=== PATIENT | female | born 1995 | race Two or more races ===

== ENCOUNTER 2020-09-03 23:00 | Emergency (ER) | payer OTHER ==
[~2020-09-03] VITALS: Ht 175.3 cm; Wt 69.4 kg
[2020-09-04] LABS: HCG, SERUM QUALITATIVE NEGATIVE (NEGATIVE)
[2020-09-04 00:07] LABS: HEMATOCRIT 45.7 % (36.0-47.0); HEMOGLOBIN 15.5 g/dl (12.0-15.5); MEAN CORPUSCULAR HEMOGLOBIN 30.1 pg (27.0-33.0); MEAN CORPUSCULAR HGB CONC 33.9 g/dl (32.0-36.5); MEAN CORPUSCULAR VOLUME 88.7 fl (80.0-96.0); PLATELET COUNT, AUTOMATED 297 10^3/uL (150-450); RED BLOOD COUNT 5.15 10^6/uL (4.00-5.40)
[2020-09-04 00:13] LABS: ACETAMINOPHEN LEVEL < 2.0 UG/ML (10.0-30.0); ALBUMIN 4.7 GM/DL (3.2-5.2); ALT/SGPT 47 U/L (12-78); AMPHETAMINES LEVEL URINE NEGATIVE (NEGATIVE); BARBITURATES URINE NEGATIVE (NEGATIVE); BENZODIAZEPINES URINE NEGATIVE (NEGATIVE); BILIRUBIN,DIRECT 0.1 MG/DL (0.0-0.2); BILIRUBIN,TOTAL 0.4 MG/DL (0.2-1.0); BLOOD UREA NITROGEN 8 MG/DL (7-18); CALCIUM LEVEL 8.7 MG/DL (8.5-10.1); CANNABINOIDS URINE NEGATIVE (NEGATIVE); CARBON DIOXIDE LEVEL 25 MEQ/L (21-32); CHLORIDE LEVEL 113 MEQ/L (98-107); COCAINE METABOLITE URINE NEGATIVE (NEGATIVE); CREATININE FOR GFR 0.82 MG/DL (0.55-1.30); ETHYL ALCOHOL (ETHANOL) 0.234 % (0.000-0.010); GLOMERULAR FILTRATION RATE > 60.0 (>60); GLUCOSE, FASTING 105 MG/DL (70-100); METHADONE URINE NEGATIVE (NEGATIVE); OPIATES URINE NEGATIVE (NEGATIVE); PHENCYCLIDINE URINE NEGATIVE (NEGATIVE); POTASSIUM SERUM 3.7 MEQ/L (3.5-5.1); SALICYLATE LEVEL < 1.7 MG/DL (5.0-30.0); SODIUM LEVEL 145 MEQ/L (136-145); THYROID STIMULATING HORMONE 0.502 uIU/ML (0.358-3.740); TOTAL PROTEIN 7.8 GM/DL (6.4-8.2)
[2020-09-04 05:17] VITALS: BP 109/74
[2020-09-04] MEDS ORDERED: VITMTA PO (05:27)
== END 2020-09-04 08:24 | disposition home or self-care (01) ==
LOC: M ED 23:00
DX: F43.20 Adjustment disorder, unspecified (principal); F10.229 Alcohol dependence with intoxication, unspecified; Y90.1 Blood alcohol level of 20-39 mg/100 ml
CPT/HCPCS: 36415; 80048; 80076; 80307; 84443; 84703; 85027; 99284; G0480

== ENCOUNTER 2021-04-19 03:45 | Emergency (ER) | payer OTHER ==
[~2021-04-19 03:45] MED LIST: VITMTA PO
[2021-04-19 03:58] LABS: HEMOGLOBIN 15.2 g/dl (12.0-15.5); MEAN CORPUSCULAR HEMOGLOBIN 31.3 pg (27.0-33.0); MEAN CORPUSCULAR HGB CONC 35.3 g/dl (32.0-36.5); MEAN CORPUSCULAR VOLUME 88.5 fl (80.0-96.0); PLATELET COUNT, AUTOMATED 282 10^3/uL (150-450); RED BLOOD COUNT 4.86 10^6/uL (4.00-5.40); WHITE BLOOD COUNT 9.3 10^3/uL (4.0-10.0)
[2021-04-19 04:39] LABS: ACETAMINOPHEN LEVEL < 2.0 UG/ML (10.0-30.0); ALBUMIN 4.2 GM/DL (3.2-5.2); ALT/SGPT 37 U/L (12-78); BILIRUBIN,DIRECT 0.1 MG/DL (0.0-0.2); BILIRUBIN,TOTAL 0.2 MG/DL (0.2-1.0); BLOOD UREA NITROGEN 11 MG/DL (7-18); CALCIUM LEVEL 9.1 MG/DL (8.5-10.1); CARBON DIOXIDE LEVEL 23 MEQ/L (21-32); CHLORIDE LEVEL 112 MEQ/L (98-107); CREATININE FOR GFR 0.65 MG/DL (0.55-1.30); ETHYL ALCOHOL (ETHANOL) 0.192 % (0.000-0.010); GLOMERULAR FILTRATION RATE > 60.0 (>60); GLUCOSE, FASTING 108 MG/DL (70-100); POTASSIUM SERUM 3.5 MEQ/L (3.5-5.1); SALICYLATE LEVEL < 1.7 MG/DL (5.0-30.0); SODIUM LEVEL 146 MEQ/L (136-145); THYROID STIMULATING HORMONE 0.936 uIU/ML (0.358-3.740); TOTAL PROTEIN 7.7 GM/DL (6.4-8.2)
[2021-04-19 11:38] VITALS: BP 120/73
== END 2021-04-19 11:40 | disposition home or self-care (01) ==
LOC: M ED 03:45
DX: F10.229 Alcohol dependence with intoxication, unspecified (principal); Y90.0 Blood alcohol level of less than 20 mg/100 ml; F43.20 Adjustment disorder, unspecified

== ENCOUNTER 2021-05-12 13:55 | Inpatient (IN) | payer OTHER ==
[~2021-05-12] VITALS: Ht 157.5 cm; Wt 75.0 kg
[2021-05-12] MEDS ORDERED: ONDANSETRON 4MG/2ML VIAL IV ONE (14:25)
[2021-05-12 15:08] LABS: HEMATOCRIT 45.9 % (36.0-47.0); HEMOGLOBIN 15.8 g/dl (12.0-15.5); MEAN CORPUSCULAR HGB CONC 34.4 g/dl (32.0-36.5); PLATELET COUNT, AUTOMATED 321 10^3/uL (150-450)
[2021-05-12 15:35] LABS: AMPHETAMINES LEVEL URINE NEGATIVE (NEGATIVE); BARBITURATES URINE NEGATIVE (NEGATIVE); BENZODIAZEPINES URINE NEGATIVE (NEGATIVE); CANNABINOIDS URINE NEGATIVE (NEGATIVE); COCAINE METABOLITE URINE NEGATIVE (NEGATIVE); METHADONE URINE NEGATIVE (NEGATIVE); OPIATES URINE NEGATIVE (NEGATIVE); PHENCYCLIDINE URINE NEGATIVE (NEGATIVE)
[2021-05-12 15:42] LABS: HCG, SERUM QUALITATIVE NEGATIVE (NEGATIVE)
[2021-05-12 15:49] LABS: ACETAMINOPHEN LEVEL 64.2 UG/ML (10.0-30.0); ALBUMIN 4.9 GM/DL (3.2-5.2); ALT/SGPT 42 U/L (12-78); BILIRUBIN,DIRECT < 0.1 MG/DL (0.0-0.2); BILIRUBIN,TOTAL 0.3 MG/DL (0.2-1.0); BLOOD UREA NITROGEN 14 MG/DL (7-18); CALCIUM LEVEL 9.1 MG/DL (8.5-10.1); CARBON DIOXIDE LEVEL 16 MEQ/L (21-32); CHLORIDE LEVEL 109 MEQ/L (98-107); CREATININE FOR GFR 0.78 MG/DL (0.55-1.30); ETHYL ALCOHOL (ETHANOL) 0.096 % (0.000-0.010); GLOMERULAR FILTRATION RATE > 60.0 (>60); GLUCOSE, FASTING 110 MG/DL (70-100); POTASSIUM SERUM 3.3 MEQ/L (3.5-5.1); SALICYLATE LEVEL < 1.7 MG/DL (5.0-30.0); SODIUM LEVEL 139 MEQ/L (136-145); THYROID STIMULATING HORMONE 0.452 uIU/ML (0.358-3.740); TOTAL PROTEIN 7.6 GM/DL (6.4-8.2)
[2021-05-12] MEDS ORDERED: CHARCOAL ACTIVATED LIQUID 25 GM/120 ML BTL PO ONE (16:05)
--- NOTE | 2021-05-12 17:28 | ECGEPIP ---
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
[2021-05-12] MEDS ORDERED: ZOLO100T PO (21:17)
[2021-05-12] MEDS ORDERED: DISU250T PO (21:17)
[2021-05-12] MEDS ORDERED: MULTCHW12 PO (21:17)
[2021-05-12] MEDS ORDERED: NEXP1IMP SC (21:17)
[2021-05-12] MEDS ORDERED: HOME MED LIST COMPLETE! XX SCH (21:20)
[2021-05-12 21:23] LABS: RSV AMPLIFICATION NEGATIVE (NEGATIVE)
[2021-05-12] MEDS ORDERED: traZODone 50 MG TAB PO PRN (21:35)
[2021-05-12] MEDS ORDERED: IBUPROFEN 400MG TAB PO PRN (21:35)
[2021-05-12] MEDS ORDERED: MOM 30ML SUSPENSION UDC PO PRN (21:35)
[2021-05-12] MEDS ORDERED: MAALOX 30 ML SUSP *UDC PO PRN (21:35)
[2021-05-12] MEDS ORDERED: OLANZapine ORAL DISINTEGRATING TAB 5MG PO PRN (21:35)
[2021-05-12 23:04] VITALS: BP 127/71
[2021-05-13 06:51] VITALS: BP 130/69
[2021-05-13 09:00] VITALS: BP 109/61
[2021-05-13] MEDS ORDERED: LORazepam 2 MG TAB PO PRN (11:10)
[2021-05-13] MEDS: MULTIVITAMINS/MINERALS THERAP 1 TAB PO SCH (11:42)
[2021-05-13] MEDS: FOLIC ACID 1 MG TAB PO SCH (11:42)
[2021-05-13] MEDS: THIAMINE 100 MG TAB PO SCH ×2 (11:43→20:48)
[2021-05-13 11:55] VITALS: BP 132/72
--- NOTE | 2021-05-13 13:43 | HPEPDOC ---
General Date of Admission May 12, 2021 at 21:34 Date of Service: May 13, 2021 Chief Complaint The patient is a 26-year-old female admitted with a reason for visit of Unspecified Depressive Disorder. History of Present Illness 26 yo active W with a history of alcohol abuse who was brought into the ED for suicide attempt by taking various medications i/s/o severe depression and feeling overwhelmed. Her committed suicide in 08/2020 by hanging and she reports difficulty coping with his suicide, has relapsed and started drinking again and reported feeling overwhelmed with life in general admitted to having taken an overdose of mixed medications with intent of killing herself. She reports 1 prior attempt when she was much younger in school. She otherwise denied any recent illness, homicidal ideations, visual or auditory hallucinations. She reports poor relations with her in-laws that did not allow her to be present at her burial service and this has made the loss worse. Lab evaluation were unremarkable and she was admitted to [facility]. Home Medications Scheduled Disulfiram (Disulfiram) 250 Mg Tablet, 250 MG PO DAILY, (Reported) Etonogestrel (Nexplanon) 68 Mg Implant, 68 MG SC ASDIRECTED, (Reported) IMPLANTED MARCH 2021 Folic Acid/Multivit-Min/Lutein (Multi-Vitamin Gummies) 1 Each Tab.chew, 2 CHW PO DAILY, (Reported) Sertraline Hcl (Zoloft) 100 Mg Tablet, 200 MG PO DAILY, (Reported) Allergies Coded Allergies: No Known Allergies (Unverified , 09/03/20) Past Medical History Medical History depression Surgical History None Social History * Smoker: Denies Alcohol: heavy Drugs: denies Psychosocial History: Decreased mood, Depression, Prior suicide attempt, Suicidal thoughts A-FIB/CHADSVASC A-FIB History Current/History of A-Fib/PAF?: No Current PO Anticoag Therapy: No Age/Risk Factor Scoring CHADSVASC: CHADSVASC Response (Comments) Value Age Risk Factor Age < 65 years old 0 Gender Risk Factor Female 1 Hx of CHF No 0 Hx of HTN No 0 Hx of Stroke/TIA/or VTE No 0 Hx of Diabetes No 0 Hx of Vascular Disease No 0 Total 1 Treatment Treatment ordered: NONE Reason Anticoagulant not given: Not indicated/[id number] Review of Systems Constitutional: Denies: Chills, Fever, Night Sweats Eyes: Denies: Pain, Vision change ENT: Denies: Head Aches, Ear Pain, Dysphagia Skin: Denies: Rash, Lesions, Breakdown Pulmonary: Denies: Dyspnea, Cough Cardiovascular: Denies: Chest Pain, Palpitations, Orthopnea, Paroxysmal Noc. Dyspnea, Lt Headedness Gastrointestinal: Denies: Nausea, Vomiting, Abdominal Pain, Diarrhea Genitourinary: Denies: Dysuria, Frequency, Incontinence, Retention Hematologic: Denies: Bruising, Bleeding Excessively Endocrine: Denies: Polydipsia, Polyphagia, Polyuria, Heat Intolerance, Cold Intolerance, Other Endocrine Sx Musculoskeletal: Denies: Neck Pain, Back Pain, Joint Pain, Muscle Pain, Spasms Neurological: Denies: Weakness, Numbness, Change in speech, Confusion Psych: Reports: Depression, Thoughts of Self Harm Physical Examination General Exam: Positive: Alert, No Acute Distress Eye Exam: Positive: PERRLA, Conjunctiva & lids normal, EOMI; Negative: Sclera icteric ENT Exam: Positive: Atraumatic, Mucous membr. moist/pink, Pharynx Normal Neck Exam: Positive: Supple; Negative: JVD, thyromegaly Chest Exam: Positive: Clear to auscultation, Normal air movement Heart Exam: Positive: Rate Normal, Regular Rhythm, Normal S1, Normal S2; Negative: Murmurs, Rubs Abdomen Exam: Positive: Normal bowel sounds, Soft; Negative: Tenderness, Hepatospenomegaly Extremity Exam: Positive: Normal pulses; Negative: Clubbing, Cyanosis, Edema Skin Exam: Positive: Nl turgor and temperature; Negative: Breakdown, Lesion Neuro Exam: Positive: Normal Gait, Normal Speech, Cranial Nerves 3-12 NL, Reflexes 2+ Psych Exam: Positive: Oriented x 3, Other (depressed when asked about recent psychosocial stressors, becomes teary) Vital Signs Vital Signs Date Time Temp Pulse Resp B/P (MAP) Pulse Ox O2 Delivery O2 Flow Rate FiO2 05/13/21 11:55 70 132/72 05/13/21 06:51 98.3 16 97 Room Air Laboratory Data Labs 24H Laboratory Tests 2 05/12/21 14:37: Nucleated Red Blood Cells % (auto) 0.0, Anion Gap 14, Glomerular Filtration Rate > 60.0, Calcium Level 9.1, Total Bilirubin 0.3, Direct Bilirubin < 0.1, Aspartate Amino Transf (AST/SGOT) 25, Alanine Aminotransferase (ALT/SGPT) 42, Alkaline Phosphatase 86, Total Protein 7.6, Albumin 4.9, Albumin/Globulin Ratio 1.8, Thyroid Stimulating Hormone (TSH) 0.452, Human Chorionic Gonadotropin, Qual NEGATIVE, Salicylates Level < 1.7L, Urine Opiates Screen NEGATIVE, Urine Methadone Screen NEGATIVE, Acetaminophen Level 64.2H, Urine Barbiturates Screen NEGATIVE, Urine Phencyclidine Screen NEGATIVE, Urine Amphetamines Screen NEGATIVE, Urine Benzodiazepines Screen NEGATIVE, Urine Cocaine Metabolite Screen NEGATIVE, Urine Cannabinoids Screen NEGATIVE, Ethyl Alcohol Level 0.096H 05/12/21 18:42: Acetaminophen Level 21.7 05/12/21 20:32: Coronavirus (COVID-19)(PCR) NEGATIVE, Influenza Type A (RT-PCR) NEGATIVE, Influenza Type B (RT-PCR) NEGATIVE, Respiratory Syncytial Virus (PCR) NEGATIVE CBC/BMP Laboratory Tests 05/12/21 14:37 Assessment/Plan 26 yo active W with a history of alcohol abuse whose recently committed suicide in 08/2020 who was admitted to the [facility] ongoing depression and suicide attempt i/s/o profound grief, depression and familial strife with in- laws. Depression and suicide attempt with persisting ideations: -Eval and treatment per psych team Alcohol abuse at risk for withdrawal: -CIWA protocol per psych At this time, she has no other active medical problems and I will sign off. Please reconsult for any medical concerns. Plan / VTE VTE Prophylaxis Ordered?: No VTE Exclusion Mechanical Proph: Low Risk for VTE VTE Exclusion Pharmacological: At Low Risk for VTE JAN FRIEND MD May 13, 2021 13:43
[2021-05-13] MEDS: NALTREXONE 50 MG TAB PO SCH (16:03)
[2021-05-13 16:28] VITALS: BP 128/65
[2021-05-13] MEDS: NICOTINE 21MG/24HR 1 EA TRANSDERMAL TD PRN (17:20)
[2021-05-13 21:00] VITALS: BP 109/61
[2021-05-14 07:00] VITALS: BP 111/59
[2021-05-14] MEDS: THIAMINE 100 MG TAB PO SCH ×2 (09:36→21:32)
[2021-05-14] MEDS: NALTREXONE 50 MG TAB PO SCH (09:36)
[2021-05-14] MEDS: FOLIC ACID 1 MG TAB PO SCH (09:36)
[2021-05-14] MEDS: SERTRALINE 100 MG TAB PO SCH (09:36)
[2021-05-14] MEDS: MULTIVITAMINS/MINERALS THERAP 1 TAB PO SCH (09:36)
--- NOTE | 2021-05-14 10:40 | MHHPEPDOC ---
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 On this occasion admitted to the ED after an overdose on Tylenol while intoxicated with alcohol (BAL.096), after which a friend called mother Anna after talking to her on "facetime", her mother then who called 911. States it occurred during lunch break when she felt overwhelmed because she was supposed to move to a new house and had to have the dogs brought over, states she drank 3 large vodka drinks, w/ ingestion of 5-10 Tylenol, also 5-10 pain relievers (does not know the name), 5 of her sertraline 100 mg pills. States she states she also forgot her Antabuse yesterday prior to this incident. Per collateral from Anna Barbie: States she thinks it was the stress of the house, people lying to her as she has not closed on her house, apparently the realtor snapped at her when she suggested renting the house until closing from the collar setter overlock. Also her 's birthday is the I wanna say, she has some memories come up around this time. He hung himself in his barracks room and the other soldiers kept her out of the loop. The mother prevented her from attending the , this has been hard on her and she has guilt because she feels she treated him badly. No suicidal thoughts made to me or change in behavior apart from her calling me after having a drink and crying about the house, she's impulsive though and cannot drink. I called 911 after her friend called me. Went this morning and removed alcohol, states roomate removed excess pills. I noticed the mood swings though. No guns or weapons at home, no symptoms of [place], depression, or psychosis. Psychiatric Review of Systems Anxiety: panic attacks (last 3 weeks ago infreqen) Anxiety/ 6 months or more of: easily fatigued, difficulty concentrating, irritability, muscle tension, personality cluster A,BC (Mood fluctuations, quick to anger, interpersonal conflict history, some feelings of emptiness, impulsive piercings/coloring hair, alcohol drinking to blackout on weekends) Past Psychiatric History Previous Psychiatric Diagnosis: Report depression and Borderline Personality disorder Previous Psychiatric Admissions: . Suicide Attempts: . Psychiatric Follow-up: . Psychiatric medications: . 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19, concussion) Seizures: No Hospitalizations: Yes (was in hospital for alcohol use withdrawal 2x) Surgeries: Yes (tonsillectomy, breast implants) Family Medical/Psychiatric HX Medical Problems Denies Psychiatric Disorders: Yes (cousin, addicted to pills, possible bipolar disorder, reports 20 y/o sister was admitted to inpatient unit after bf suicide) Addiction: No Suicide Attemps/Completions: No Addiction History nicotine (disposable vapes daily), alcohol (Drinks to blackout on weekends) Social History Childhood: Reports had trouble focusing, 2 sisters, 1 brother (estranged), she is middle child, moved around alot with father. Abuse/Trauma: Denies abuse, trauma of finding out bf hung himself Current Living Situation: Apartment in [place], [place]. Bought a house in [place] and was supposed to move in with roomate. 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 Social Support: Lots of support, mother Anna Valentin [phone], friends, roomate Legal: Denies, no DWIs reported Marital: Mental Status Examination General Appearance: unkempt Build: average Demeanor: guarded Eye Contact: avoidant Activity: slowed Behavior: cooperative, status post overdose Speech: clear, spontaneous, slow Mood: anxious Affect: constricted, anxious Thought Process: logical/linear Thought Content (Delusions): denies SI, HI, AVH Thought Content (Other): guarded, coherent Thought Content (Aggressive): none reported Perception (Hallucinations): none reported Perception (Other): none reported Cognition (Impairment of): none reported Cognition(Intelligence Est.): average Oriented: Awake, Alert, Oriented times three Insight: fair Judgment: Poor Psychosis: Denies Diagnoses Borderline Personality disorder per hx and interview Unspecified anxiety disorder A-FIB/CHADSVASC A-FIB History Current/History of A-Fib/PAF?: No Current PO Anticoag Therapy: No Age/Risk Factor Scoring CHADSVASC: CHADSVASC Response (Comments) Value Age Risk Factor Age < 65 years old 0 Gender Risk Factor Female 1 Hx of CHF No 0 Hx of HTN No 0 Hx of Stroke/TIA/or VTE No 0 Hx of Diabetes No 0 Hx of Vascular Disease No 0 Total 1 Treatment Treatment ordered: NONE Reason Anticoagulant not given: Not indicated/[id number] Assessment Patient is a 26-year-old woman, who is an active duty soldier with a history of b borderline personality disorder and depression reportedly, who presented after an intentional overdose on Tylenol and psychiatric medications. She was medically cleared and admitted to the unit 9.39. On interview appears withdrawn, mildly depressed and irritable at times, partially cooperative to questioning. Denies suicidal thoughts, becomes frustrated during she will have to stay longer to get her back on her medication and create a safe discharge plan. Initial Treatment Plan 1. Patient was admitted on a [9.39] status. 2. Complete history was obtained. 3. With patients permission, family will be contacted and database will be expanded. 4. Patients medication regimen will be reviewed and changed accordingly. 5. Patient will be provided with protected environment. 6. Patient will be treated with individual, group, and milieu therapies. 7. Patient will receive supportive psych-education. 8. Discharge planning will commence immediately. 9. Outpatient follow-up treatment will be strongly recommended. 10. The initial treatment plan will focus initially on: * Depression. * Risk for suicide. ESTIMATED LENGTH OF STAY: 7 DAYS. TIME SPENT COUNSELING AND COORDINATING INITIAL CARE: 60 minutes. Tobacco Cessation Screen Tobacco Cessation Tx Ordered?: Yes Complete/Results docum. (vaping) Vital Signs Vital Signs Date Time Temp Pulse Resp B/P (MAP) Pulse Ox O2 Delivery O2 Flow Rate FiO2 05/13/21 06:51 98.3 63 16 130/69 (89) 97 Room Air Laboratory Data 24H Labs Laboratory Tests 2 05/12/21 14:37: Nucleated Red Blood Cells % (auto) 0.0, Anion Gap 14, Glomerular Filtration Rate > 60.0, Calcium Level 9.1, Total Bilirubin 0.3, Direct Bilirubin < 0.1, Aspartate Amino Transf (AST/SGOT) 25, Alanine Aminotransferase (ALT/SGPT) 42, Alkaline Phosphatase 86, Total Protein 7.6, Albumin 4.9, Albumin/Globulin Ratio 1.8, Thyroid Stimulating Hormone (TSH) 0.452, Human Chorionic Gonadotropin, Qual NEGATIVE, Salicylates Level < 1.7L, Urine Opiates Screen NEGATIVE, Urine Methadone Screen NEGATIVE, Acetaminophen Level 64.2H, Urine Barbiturates Screen NEGATIVE, Urine Phencyclidine Screen NEGATIVE, Urine Amphetamines Screen NEGATIVE, Urine Benzodiazepines Screen NEGATIVE, Urine Cocaine Metabolite Screen NEGATIVE, Urine Cannabinoids Screen NEGATIVE, Ethyl Alcohol Level 0.096H 05/12/21 18:42: Acetaminophen Level 21.7 05/12/21 20:32: Coronavirus (COVID-19)(PCR) NEGATIVE, Influenza Type A (RT-PCR) NEGATIVE, Influenza Type B (RT-PCR) NEGATIVE, Respiratory Syncytial Virus (PCR) NEGATIVE CBC/BMP Laboratory Tests 05/12/21 14:37 Medications Scheduled Disulfiram (Disulfiram) 250 Mg Tablet, 250 MG PO DAILY, (Reported) Etonogestrel (Nexplanon) 68 Mg Implant, 68 MG SC ASDIRECTED, (Reported) IMPLANTED MARCH 2021 Folic Acid/Multivit-Min/Lutein (Multi-Vitamin Gummies) 1 Each Tab.chew, 2 CHW PO DAILY, (Reported) Sertraline Hcl (Zoloft) 100 Mg Tablet, 200 MG PO DAILY, (Reported) Allergies Coded Allergies: No Known Allergies (Unverified , 09/03/20) ARSH BROOKE MD May 13, 2021 10:30
--- NOTE | 2021-05-14 10:49 | MHIPNPDOC ---
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 Patient has a history of suicide attempts, and impulsive behavior Interval: Berenice continues to be irritable and frustrated leading to admission stating " being here will cause problems and making it worse", was explained the reason for admission and need to stabilize, assess for tolerating restarting medications. Sleep is okay, appetite okay. VITAL SIGNS: See below. NEW TEST RESULTS: None CURRENT MEDICATIONS: See below. MENTAL STATUS EXAMINATION: Patient is a 22-year old female, who appears stated age, fair hygiene, long hair, avoiding eye contact. Speech: Is normal rate, decreased, nonspontaneous. Language skills are intact. Thought processes including: Linear, logical. Thought content: Denies any suicidal ideations. Abstract reasoning, and computation: Intact. Description of associations: Intact. Description of abnormal or psychotic thoughts: Denies. Judgment: Poor, improving Insight: Poor, improving. Orientation: Intact. Recent and remote memory: Intact. Attention span and concentration: Fair. Language: Norwegian. Fund of knowledge: Average. Mood: "fine". Affect: Dysthymic, irritable, frustrated, withdrawn, mood incongruent, somewhat labile. DIAGNOSES: 1. Generalized anxiety disorder 2. Unspecified trauma and stressor related disorder 2. Borderline personality disorder per history 3. Alcohol use disorder, moderate, recurrent 4. Tobacco use disorder, mild ASSESSMENT: Patient continues to be irritable and frustrated with admission, seems to have limited insight into the seriousness of the suicide attempt, made aware we need to monitor during medication restart, tolerating naltrexone for alcohol cravings well, though did report some stomach upset in the evening which has improved. Needs continued stay for medication management, safe discharge plan. MANAGEMENT PLAN: Patient is continued on the CIWA protocol. Discussed in morning meeting for coordination of care. Restarted on sertraline 200 mg, home dose, discuss potential side effects including but not limited to, risk for serotonin syndrome, sexual side effects, GI side effect. TIME SPENT: 25 minutes. Vital Signs Vital Signs Date Time Temp Pulse Resp B/P (MAP) Pulse Ox O2 Delivery O2 Flow Rate FiO2 8/18/21 07:00 97.4 63 16 111/59 (76) 98 Room Air Current Medications Current Medications Medications (Trade) Dose Ordered Sig/James Route PRN Reason Start Time Stop Time Status Last Admin Dose Admin Al Hydrox/Mg Hydrox/Simethicone (Mylanta) 30 ml Q4HP PRN PO HEARTBURN/INDIGESTION 05/12/21 21:35 Folic Acid (Folic Acid) 1 mg DAILY PO 05/13/21 09:00 05/14/21 09:36 Home Med (Home Med List Complete!) ASDIRECTED XX 05/12/21 21:20 05/12/21 21:21 DC Ibuprofen (Advil) 400 mg Q6HP PRN PO MODERATE PAIN (PS 5-7) 05/12/21 21:35 Lorazepam (Ativan) 2 mg ASDIRECTED PRN PO SEE PROTOCOL 05/13/21 11:10 Magnesium Hydroxide (Milk Of Magnesia) 30 ml DAILYPRN PRN PO CONSTIPATION 05/12/21 21:35 Multivitamins (Theragram-M) 1 tab DAILY PO 05/13/21 09:00 05/14/21 09:36 Naltrexone HCl (Revia) 50 mg DAILY PO 05/13/21 15:50 05/14/21 09:36 Nicotine (Nicoderm Cq 21mg) 1 patch DAILY PRN TD NICOTINE WITHDRAWAL 05/12/21 21:35 05/13/21 17:20 Olanzapine (ZyPREXA ZYDIS) 5 mg Q4HP PRN PO AGITATION 05/12/21 21:35 Sertraline HCl (Zoloft) 200 mg DAILY PO 05/14/21 09:00 05/14/21 09:36 Thiamine HCl (Thiamine HCl) 100 mg BID PO 05/13/21 09:00 05/15/21 21:01 05/14/21 09:36 Trazodone HCl (Desyrel) 50 mg QHSP PRN PO INSOMNIA 05/12/21 21:35 Allergies Coded Allergies: No Known Allergies (Unverified , 09/03/20) ARSH BROOKE MD May 14, 2021 10:49
[2021-05-14 16:23] VITALS: BP 117/68
[2021-05-14] MEDS: NICOTINE 21MG/24HR 1 EA TRANSDERMAL TD PRN (18:33)
[2021-05-14 20:30] VITALS: BP 99/63
[2021-05-14 21:35] VITALS: BP 99/63
[2021-05-15 06:53] VITALS: BP 124/75
[2021-05-15 06:54] VITALS: BP 124/75
[2021-05-15] MEDS: NALTREXONE 50 MG TAB PO SCH (09:13)
[2021-05-15] MEDS: MULTIVITAMINS/MINERALS THERAP 1 TAB PO SCH (09:14)
[2021-05-15] MEDS: SERTRALINE 100 MG TAB PO SCH (09:14)
[2021-05-15] MEDS: THIAMINE 100 MG TAB PO SCH (09:14)
[2021-05-15] MEDS: FOLIC ACID 1 MG TAB PO SCH (09:14)
[2021-05-15] MEDS: NICOTINE 21MG/24HR 1 EA TRANSDERMAL TD PRN (09:15)
[2021-05-15] MEDS ORDERED: ZOLO100T PO (11:12)
[2021-05-15] MEDS ORDERED: NALT50TA4 PO (11:12)
[2021-05-15] MEDS ORDERED: NICO21PAT TD (11:12)
--- NOTE | 2021-05-16 20:05 | MHDSPDOC ---
[facility] Discharge Summary Discharge Summary DATE OF ADMISSION: May 12, 2021 at 21:34 DATE OF DISCHARGE: May 15, 2021 at 13:08 DISCHARGE DIAGNOSES: 1. Generalized anxiety disorder 2. Unspecified trauma and stressor related disorder 2. Borderline personality disorder per history 3. Alcohol use disorder, moderate, recurrent 4. Tobacco use disorder, mild REASON FOR ADMISSION: PT is dependent of spouse who committed suicide last August by hanging. Pt admits that she has had difficulty coping with his suicide, also c/o feeling "overwhelmed" at work and at home, today she admittedly took overdose of mixed medications with intent of killing herself, states "I didn't want to be here anymore". Pt reports she called her friend who called 911. Pt denies HI/AH/VH, denies drug use, admits to increased ETOH use recently, states "its been a problem", adds that she had a 3 week preiod of sobriety but relapsed this weekend. Pt reports compliance with outpt MH tx at [place] and her medications(prior to OD), currently resides with a roommate, pt.'s mother arrived to ED to see pt as well. Pt continues to admit she took overdose with suicidal intent, reports one prior attempt by OD "when I was in school" but adds that she was not hospitalized as she did not report it at the time. CONSULTANTS INVOLVED: See medical H&P by hospitalist TREATMENT AND PROGRESS ON THE UNIT : Patient was admitted to the [facility] legal status, she was afforded the following treatment modalities: 1. Individual therapy 2. Group therapy 3. Medication management 4. Milieu therapy 5. Safe environment HOSPITAL COURSE: Patient was admitted on legal status. She was medically cleared post overdose before arriving to the [facility]. Basic labs are taken and unremarkable. Acetaminophen level was 64.2 in the ED and on repeat 21.7 4 hours later, ethyl alcohol level was 0.096 on admission in the ED. She was started on CIWA protocol. Main stressor corroborated by mother while establishing collateral was an argument with real estate agency principal, where she was not allowed to rent the house ahead of time that she was closing on, also stressors of packing, moving, bringing the dog over made her feel overwhelmed. States she regrets the impulsive act, and was able to learn DBT skills during her stay for impulse control. Further she was able to share her experience with her mother, who came down from [place] to be with her until her next appointment as a safety plan. Mother agreed to remove excess pills, sharp objects, and other things that she can harm himself with. Mother and her friend also helped move her things and pack her things during her stay and she was able to close on the house so that they can be brought over, to reduce the overall stress level the patient which was a trigger for her initial attempt. Patient was restarted on her home dose sertraline 200 mg for impulse control and mood, she is also started on naltrexone 50 mg for alcohol cravings. discharge planner to help coordinate safe the plan, safe discharge, outpatient appointments. During course of stay patient denied any suicidal ideation, intent or plan, she regretted the attempt endorse guilt. On day of discharge she denied depression, [place], anxiety, insomnia, suicidal or homicidal ideations, impulsivity or delusions. DISCHARGE ASSESSMENT: On today's interview, patient is alert and oriented, patient has good hygiene and grooming. She is full affect and smiling at times. She is engaged in the interview. Denies depression. Denies suicidal or homicidal ideation planning or intent. She has improved insight and judgment. She declines further hospitalization despite being offered long-term treatment. She is encouraged to return to the hospital if symptoms worsen or change in symptoms and encouraged to call unit if she needs to speak to provider for questions regarding medications or care. MENTAL STATUS EXAMINATION ON DISCHARGE: Patient is a 26-year old female, who appears stated age, good hygiene, long hair, improved eye contact. Speech: Spontaneous normal rate rhythm and volume. Language skills are intact. Thought processes including: Linear, logical. Thought content: Denies any suicidal ideations, intent or plan. Abstract reasoning, and computation: Good. Description of associations: Intact. Description of abnormal or psychotic thoughts: Denies. Judgment: Improved Insight: Good Orientation: X4 Recent and remote memory: Intact. Attention span and concentration: Good Language: [place]. Fund of knowledge: Average. Mood: "Good". Affect: Euthymic, mood congruent, appropriate MEDICATIONS ON DISCHARGE: See medication reconciliation PLAN/FOLLOWUP ARRANGEMENTS: Mental health appointment with [facility] clinic May 21 2010- and behavioral health May 19, 2021, [facility] medical follow-up with therapist May 20, 2021 The amount of time spent in the coordination of care for this patient was approximately 35 minutes. ETOH/Disorder Med Rx ETOH/DRUG DISORDER RX: Given to pt at d/c Vital Signs/I&Os Vital Signs Date Time Temp Pulse Resp B/P (MAP) Pulse Ox O2 Delivery O2 Flow Rate FiO2 05/15/21 06:54 84 124/75 05/15/21 06:53 97.4 16 98 Room Air Medications Scheduled Disulfiram (Disulfiram) 250 Mg Tablet, 250 MG PO DAILY, (Reported) Etonogestrel (Nexplanon) 68 Mg Implant, 68 MG SC ASDIRECTED, (Reported) IMPLANTED MARCH 2021 Folic Acid/Multivit-Min/Lutein (Multi-Vitamin Gummies) 1 Each Tab.chew, 2 CHW PO DAILY, (Reported) Naltrexone HCl (Naltrexone HCl) 50 Mg Tablet, 50 MG PO DAILY for alcohol use , #7 Sertraline Hcl (Zoloft) 100 Mg Tablet, 200 MG PO DAILY, (Reported) Sertraline Hcl (Zoloft) 100 Mg Tablet, 200 MG PO DAILY for depression, #7 Scheduled PRN Nicotine (Nicotine Patch) 21 Mg Patch.td24, 1 PATCH TD DAILY PRN for NICOTINE WITHDRAWAL, #7 Allergies Coded Allergies: No Known Allergies (Unverified , 09/03/20) ARSH BROOKE MD May 15, 2021 19:38
== END 2021-05-15 13:08 | disposition home or self-care (01) | DRG 880 ==
LOC: EDBD 13:55 → M ED 13:55 → M ED INP 21:34 → M PSY 22:05
PROVIDERS: ADMIT Student in an Organized Health Care Education/Training Program; ATTEND Student in an Organized Health Care Education/Training Program
DX: F41.1 Generalized anxiety disorder (principal); F60.3 Borderline personality disorder; F10.20 Alcohol dependence, uncomplicated; T39.1X2A Poisoning by 4-Aminophenol derivatives, intentional self-harm, initial encounter; F17.200 Nicotine dependence, unspecified, uncomplicated; F43.9 Reaction to severe stress, unspecified; Z20.822 Contact with and (suspected) exposure to COVID-19; Z63.4 Disappearance and death of family member; Z79.899 Other long term (current) drug therapy